=== PATIENT | male | born 1985 | race Caucasian/White ===

== ENCOUNTER → 2023-07-07 | Outpatient (CLI) | payer OTHER ==
[2023-07-07 20:00] LABS: ALT 23 U/L (10-49); AST 14 U/L (14-35); Albumin 4.5 d/dL (3.8-4.9); Albumin/Globulin Ratio 2.37 Ratio (1.60-3.17); Alkaline Phosphatase 58 U/L (41-126); BUN/Creat Ratio 14.12 Ratio (12.00-20.00); Blood Urea Nitrogen 11.3 mg/dL (9.0-27.0); Calcium 9.5 mg/dL (8.7-10.3); Carbon Dioxide 27.8 mmol/L (21.6-31.8); Chloride 106 mmol/L (96-109); Globulin 1.9 d/dL (1.6-3.3); Glucose 88 mg/dL (70-110); Hepatitis C IgG Antibody Reactive (Non-Reactive); Potassium 4.2 mmol/L (3.5-5.5); Sodium 143 mmol/L (135-145); Total Bilirubin <0.2 mg/dL (0.3-1.2); Total Protein 6.4 d/dL (6.2-8.2)
[2023-07-07 20:27] LABS: Hepatitis B Surface AB- Quant 3.5 mIU/mL
[2023-07-07 21:34] LABS: HCT 43.9 % (39.6-50.0); HGB 14.6 d/dL (13.0-17.0); MCH 31.1 pg (27.0-32.0); MCHC 33.3 d/dL (32.0-37.0); MCV 93.4 FL (80.0-97.0); Mean Platelet Volume 10.2 FL (9.5-12.2); NRBC Per 100 WBC 0 X 10*3/uL (0.00-0.01); Platelet Count 278 X 10*3/uL (140-440); RDW 13.7 % (11.5-14.5); WBC 10.69 X 10*3/uL (4.50-10.00)
[2023-07-07 22:17] LABS: Basophils # (A) 0.05 X 10*3/uL (0.00-0.10); Basophils % (A) 0.5 %; Eosinophils # (A) 0.19 X 10*3/uL (0.04-0.35); Eosinophils % (A) 1.8 %; Lymphocytes # (A) 4.09 X 10*3/uL (0.90-5.00); Lymphocytes % (A) 38.3 %; Monocytes # (A) 0.51 X 10*3/uL (0.20-1.00); Monocytes % (A) 4.8 %; Neutrophils # (A) 5.83 X 10*3/uL (1.80-7.70); Neutrophils % (A) 54.4 %; RBC Morphology Normal (Normal)
== END | disposition home or self-care (01) ==
LOC: LABWHC1 14:43
PROVIDERS: ATTEND Physician Assistant
DX: F11.20 Opioid dependence, uncomplicated (principal)
CPT/HCPCS: 36415; 80053; 85025; 86706; 86780; 86803